=== PATIENT | female | born 1965 | race Caucasian/White ===

== ENCOUNTER 2021-11-04 06:02 | Day surgery (SDC) | payer OTHER ==
[2021-10-25 16:26] VITALS: BMI 18.6
[2021-11-04] MEDS ORDERED: ROPIVACAINE HCL/PF 100 MG/20 ML VIAL ONE (07:12)
[2021-11-04] MEDS ORDERED: MIDAZOLAM HCL 2 MG/2 ML SINGLE DOSE VIAL ONE (07:12)
[2021-11-04] MEDS ORDERED: BUPIVACAINE HCL/EPINEPHRINE/PF 30 ML VIAL IJ ONE (07:21)
[2021-11-04] MEDS ORDERED: SUCCINYLCHOLINE CHLORIDE 200 MG/10 ML SYRINGE ONE (07:28)
[2021-11-04] MEDS ORDERED: PROPOFOL 20 ML ONE ×4 (07:28)
[2021-11-04] MEDS ORDERED: ceFAZolin SODIUM 1 GM VIAL ONE (07:39)
[2021-11-04] MEDS ORDERED: DEXAMETHASONE SOD PHOSPHATE 4 MG/1 ML VIAL ONE (07:39)
[2021-11-04] MEDS ORDERED: ONDANSETRON 4 MG/2 ML VIAL ONE (07:39)
[2021-11-04] MEDS ORDERED: KETOROLAC TROMETHAMINE 30 MG/1 ML VIAL ONE (07:39)
[2021-11-04] MEDS ORDERED: ONDANSETRON 4 MG/2 ML VIAL IVPUSH PRN (09:47)
[2021-11-04] MEDS ORDERED: oxyCODONE HCL 5 MG TABLET PO PRN ×2 (09:47)
[2021-11-04] MEDS ORDERED: PROMETHAZINE HCL 25 MG/1 ML VIAL IVPUSH PRN (09:47)
[2021-11-04 12:23] VITALS: TEMP 97.8
[2021-11-04 12:26] VITALS: BP 122/65; PULSE 74
== END 2021-11-04 12:05 | disposition home or self-care (01) ==
LOC: FASU 06:02
PROVIDERS: ATTEND Orthopaedic Surgery
PROC: 0LS30ZZ Reposition Right Upper Arm Tendon, Open Approach (ICD-10-PCS; 2021-11-04)
PROC: 0LQ14ZZ Repair Right Shoulder Tendon, Percutaneous Endoscopic Approach (ICD-10-PCS; principal; 2021-11-04 07:57)
PROC: 0RNJ4ZZ Release Right Shoulder Joint, Percutaneous Endoscopic Approach (ICD-10-PCS; 2021-11-04 07:57)
PROC: 0RBJ4ZZ Excision of Right Shoulder Joint, Percutaneous Endoscopic Approach (ICD-10-PCS; 2021-11-04 07:57)
DX: M75.111 Incomplete rotator cuff tear or rupture of right shoulder, not specified as traumatic (principal); M67.813 Other specified disorders of tendon, right shoulder; S43.431A Superior glenoid labrum lesion of right shoulder, initial encounter; X58.XXXA Exposure to other specified factors, initial encounter; Y93.9 Activity, unspecified; Y92.9 Unspecified place or not applicable; M94.211 Chondromalacia, right shoulder; M65.811 Other synovitis and tenosynovitis, right shoulder; M75.01 Adhesive capsulitis of right shoulder
CPT/HCPCS: 88304-TC; 94760

== ENCOUNTER 2023-04-23 01:11 | Inpatient (IN) | payer OTHER ==
[2023-04-23] MEDS ORDERED: SODIUM CHLORIDE 0.9% 500 ML INFUS.BAG IV ONE (03:26)
[2023-04-23] MEDS ORDERED: MAG HYDROX/AL HYDROX/SIMETH 30 ML UNIT-DOSE CUP PO ONE (03:26)
[2023-04-23] MEDS ORDERED: ACETAMINOPHEN 1000 MG/100 ML BAG IVPB ONE (03:26)
[2023-04-23] MEDS ORDERED: ONDANSETRON 4 MG/2 ML VIAL IVPUSH ONE ×2 (03:26→11:52)
[2023-04-23] MEDS ORDERED: FAMOTIDINE 20 MG/50 ML IVPB 20 MG/50 ML MG IVPB ONE ×2 (03:27→04:20)
[2023-04-23] MEDS ORDERED: ACETAMINOPHEN INJECTION 100 ML IVPB ONE ×2 (04:19→21:11)
[2023-04-23 04:20] LABS: BASO % 0.3 % (0-2.0); HEMATOCRIT 39.8 % (32.4-45.2); HEMOGLOBIN 12.9 GM/dL (10.7-15.3); LYMPH % 12.2 % (8-40); MCHC 32.4 g/dl (32.0-36.0); MEAN CELL VOLUME 89.6 fl (80-96); MEAN PLT VOLUME 7.3 fl (7.5-11.1); MONO % 5.4 % (3.8-10.2); NEUT % 82.1 % (42.8-82.8); PLATELET COUNT 189 10^3/uL (134-434); RBC 4.44 M/mm3 (3.60-5.2); RDW 14.5 % (11.6-15.6)
[2023-04-23] MEDS ORDERED: ONDANSETRON 4 MG/2 ML VIAL ONE ×2 (04:20→11:47)
[2023-04-23] MEDS ORDERED: MAG HYDROX/AL HYDROX/SIMETH 30 ML UNIT-DOSE CUP ONE (04:20)
[2023-04-23 04:44] LABS: POTASSIUM 3.4 mmol/L (3.5-5.1)
[2023-04-23 04:47] LABS: BLOOD UREA NITROGEN 15.9 mg/dL (7-18)
[2023-04-23 04:51] LABS: CREATININE 0.6 mg/dL (0.55-1.3)
[2023-04-23 04:52] LABS: BILIRUBIN,TOTAL 0.6 mg/dL (0.2-1); TOT PROT 7.3 g/dl (6.4-8.2)
[2023-04-23] MEDS ORDERED: METOCLOPRAMIDE HCL INJECTION 10 MG/2 ML VIAL IVPB ONE ×2 (06:22→06:23)
[2023-04-23] MEDS ORDERED: METOCLOPRAMIDE HCL INJECTION 10 MG/2 ML VIAL ONE (06:30)
[2023-04-23] MEDS ORDERED: ASPIRIN 81 MG CHEWABLE TABLETS PO ONE (08:15)
[2023-04-23] MEDS ORDERED: ASPIRIN 81 MG CHEWABLE TABLETS ONE (09:38)
[2023-04-23] MEDS ORDERED: ATORVASTATIN CA 20 MG TABLET (FP) PO SCH (17:00)
[2023-04-23] MEDS ORDERED: PANTOPRAZOLE 40 MG TABLET PO ONE (17:21)
[2023-04-23] MEDS: DEXTROSE 5%-0.45% SALINE 1,000 ML IV SCH (17:33)
[2023-04-23] MEDS: PANTOPRAZOLE 40 MG TABLET PO SCH (17:33)
[2023-04-23] MEDS ORDERED: DIVALPROEX SODIUM 500 MG TABLET E.C. ONE (21:04)
[2023-04-23] MEDS ORDERED: GABAPENTIN 300 MG CAPSULE ONE (21:05)
[2023-04-23] MEDS: GABAPENTIN 300 MG CAPSULE PO SCH (21:07)
[2023-04-23] MEDS: ACETAMINOPHEN 1000 MG/100 ML BAG IVPB PRN (21:15)
[2023-04-23] MEDS ORDERED: DIVALPROEX SODIUM 250 MG TABLET E.C. PO SCH (22:00)
[2023-04-24] MEDS: ACETAMINOPHEN 1000 MG/100 ML BAG IVPB PRN ×2 (06:35→22:55)
[2023-04-24] MEDS ORDERED: ACETAMINOPHEN INJECTION 100 ML IVPB ONE ×2 (06:48→14:19)
[2023-04-24] MEDS ORDERED: ONDANSETRON 4 MG/2 ML VIAL ONE ×3 (08:42→18:48)
[2023-04-24 08:43] LABS: BASO % 0.4 % (0-2.0); EOS % 0.1 % (0-4.5); HEMATOCRIT 39.5 % (32.4-45.2); HEMOGLOBIN 13.4 GM/dL (10.7-15.3); LYMPH % 34.8 % (8-40); MCH 30.3 pg (25.7-33.7); MCHC 33.8 g/dl (32.0-36.0); MEAN CELL VOLUME 89.7 fl (80-96); MEAN PLT VOLUME 7.9 fl (7.5-11.1); MONO % 10.7 % (3.8-10.2); PLATELET COUNT 225 10^3/uL (134-434); RBC 4.41 M/mm3 (3.60-5.2); RDW 14.4 % (11.6-15.6); WHITE BLOOD COUNT 8.2 K/mm3 (4.0-10.0)
[2023-04-24 08:46] LABS: POTASSIUM 3.5 mmol/L (3.5-5.1)
[2023-04-24 08:47] LABS: ALBUMIN 3.8 g/dl (3.4-5.0); BLOOD UREA NITROGEN 3.2 mg/dL (7-18); CALCIUM 8.9 mg/dL (8.5-10.1)
[2023-04-24 08:50] LABS: CREATININE 0.5 mg/dL (0.55-1.3)
[2023-04-24] MEDS: ONDANSETRON 4 MG/2 ML VIAL IVPUSH PRN (08:50)
[2023-04-24 08:52] LABS: BILIRUBIN,TOTAL 0.7 mg/dL (0.2-1); TOT PROT 7.3 g/dl (6.4-8.2)
[2023-04-24 09:16] LABS: EPI CELLS 6 /uL (0-25.1); HYALINE CASTS 0 /uL (0-3.1); URINE APPEARANCE CLEAR; URINE BACTERIA 14 /uL (0-1359); URINE BILIRUBIN NEGATIVE (NEGATIVE); URINE COLOR YELLOW; URINE GLUCOSE (UA) NEGATIVE (NEGATIVE); URINE KETONE 1+ (NEGATIVE); URINE LEUK ESTERASE NEGATIVE (NEGATIVE); URINE NITRITE NEGATIVE (NEGATIVE); URINE PROTEIN TRACE (NEGATIVE); URINE RBC 56 /uL (0-23.9); URINE UROBILINOGEN 0.2 mg/dL (0.2-1.0); URINE WBC 27 /uL (0-25.8)
[2023-04-24] MEDS ORDERED: ENOXAPARIN NA (PORCINE) 40 MG/0.4 ML DISP.SYRIN SQ SCH (10:00)
[2023-04-24] MEDS: PANTOPRAZOLE 40 MG TABLET PO SCH (10:39)
[2023-04-24] MEDS: METHIMAZOLE 5 MG TABLET PO SCH (10:39)
[2023-04-24] MEDS: ASPIRIN COATED 81 MG TABLET.EC PO SCH (10:39)
[2023-04-24] MEDS: DIVALPROEX SODIUM 500 MG TABLET E.C. PO SCH ×2 (10:39→22:52)
[2023-04-24 12:55] LABS: CHLORIDE 95 mmol/L (98-107); SODIUM 129 mmol/L (136-145)
[2023-04-24 12:58] LABS: CALCIUM 9.3 mg/dL (8.5-10.1)
[2023-04-24 13:00] LABS: BLOOD UREA NITROGEN 4.2 mg/dL (7-18); CO2 24 mmol/L (21-32); GLUCOSE,RANDOM 115 mg/dL (74-106)
[2023-04-24 13:00] LABS: CHOLESTEROL 230 mg/dL (50-200)
[2023-04-24 13:01] LABS: LDL CHOLESTEROL (ONLY SJRH) 140 mg/dL (5-100)
[2023-04-24 13:02] LABS: HDL CHOLESTEROL 64 mg/dL (40-60)
[2023-04-24 13:03] LABS: CREATININE 0.4 mg/dL (0.55-1.3)
[2023-04-24 13:06] LABS: ANION GAP 10 mmol/L (4-13); POTASSIUM 2.7 mmol/L (3.5-5.1)
[2023-04-24] MEDS ORDERED: KCL 10 MEQ IVPB 10 MEQ/100 ML INFUS.BAG IVPB SCH (13:30)
[2023-04-24] MEDS ORDERED: KCL 10 MEQ IVPB 10 MEQ/100 ML INFUS.BAG IVPB ONE (13:54)
[2023-04-24] MEDS: ONDANSETRON 4 MG/2 ML VIAL IVPUSH SCH ×3 (14:17→22:48)
[2023-04-24] MEDS: KCL 10 MEQ IVPB 10 MEQ/100 ML INFUS.BAG IVPB SCH ×3 (14:18→17:01)
[2023-04-24] MEDS ORDERED: ATORVASTATIN CA 80 MG TABLET (FP) PO ONE (14:33)
[2023-04-24] MEDS ORDERED: CLOPIDOGREL BISULFATE 300 MG TABLET PO ONE (14:34)
[2023-04-24] MEDS ORDERED: METOPROLOL TARTRATE 25 MG TABLET (FP) PO ONE (14:36)
[2023-04-24] MEDS ORDERED: METOPROLOL TARTRATE 25 MG TABLET (FP) ONE (14:48)
[2023-04-24] MEDS ORDERED: ATORVASTATIN CA 80 MG TABLET (FP) ONE (14:49)
[2023-04-24] MEDS ORDERED: CLOPIDOGREL BISULFATE 300 MG TABLET ONE (14:49)
[2023-04-24 14:59] LABS: MAGNESIUM 1.7 mg/dL (1.8-2.4)
[2023-04-24] MEDS ORDERED: KCL 10 MEQ IVPB 20 MEQ/200 ML INFUS.BAG IVPB ONE (15:31)
[2023-04-24] MEDS: DEXTROSE 5%-0.45% SALINE 1,000 ML IV SCH (18:35)
[2023-04-24] MEDS ORDERED: ATORVASTATIN CA 20 MG TABLET (FP) PO SCH ×2 (22:00)
[2023-04-24] MEDS: ENOXAPARIN NA (PORCINE) 40 MG/0.4 ML DISP.SYRIN SQ SCH (22:48)
[2023-04-24] MEDS: GABAPENTIN 300 MG CAPSULE PO SCH (22:48)
[2023-04-24] MEDS: METOPROLOL TARTRATE 25 MG TABLET (FP) PO SCH (22:48)
[2023-04-24] MEDS ORDERED: MAGNESIUM SULFATE IN WATER 2 GM/50 ML IVPB IVPB ONE (22:57)
[2023-04-25] MEDS: ONDANSETRON 4 MG/2 ML VIAL IVPUSH SCH (01:50)
[2023-04-25] MEDS: DEXTROSE 5%-0.45% SALINE 1,000 ML IV SCH ×2 (06:54→16:48)
[2023-04-25 07:45] LABS: BASO % 0.3 % (0-2.0); EOS % 0.2 % (0-4.5); HEMOGLOBIN 14.2 GM/dL (10.7-15.3); MCHC 33.8 g/dl (32.0-36.0); MEAN CELL VOLUME 88.6 fl (80-96); MEAN PLT VOLUME 7.5 fl (7.5-11.1); MONO % 11.3 % (3.8-10.2); NEUT % 53.2 % (42.8-82.8); PLATELET COUNT 241 10^3/uL (134-434); RBC 4.73 M/mm3 (3.60-5.2); RDW 14.3 % (11.6-15.6); WHITE BLOOD COUNT 8.7 K/mm3 (4.0-10.0)
[2023-04-25 07:59] LABS: ALBUMIN 3.4 g/dl (3.4-5.0); BLOOD UREA NITROGEN 5.3 mg/dL (7-18); CALCIUM 9.4 mg/dL (8.5-10.1)
[2023-04-25 08:03] LABS: CREATININE 0.5 mg/dL (0.55-1.3)
[2023-04-25 08:04] LABS: BILIRUBIN,TOTAL 0.8 mg/dL (0.2-1); TOT PROT 6.7 g/dl (6.4-8.2)
[2023-04-25] MEDS: ACETAMINOPHEN 1000 MG/100 ML BAG IVPB PRN ×2 (08:50→21:35)
[2023-04-25] MEDS: ONDANSETRON 4 MG/2 ML VIAL IVPUSH PRN ×3 (08:58→21:27)
[2023-04-25] MEDS ORDERED: METOCLOPRAMIDE HCL INJECTION 10 MG/2 ML VIAL IVPB SCH (09:45)
[2023-04-25] MEDS ORDERED: POTASSIUM CHLORIDE TABS 20 MEQ TABLET.ER (FP) PO SCH (10:00)
[2023-04-25] MEDS: CLOPIDOGREL BISULFATE 75 MG TABLET (FP) PO SCH (10:05)
[2023-04-25] MEDS: ENOXAPARIN NA (PORCINE) 40 MG/0.4 ML DISP.SYRIN SQ SCH ×2 (10:05→22:31)
[2023-04-25] MEDS: METHIMAZOLE 5 MG TABLET PO SCH (10:05)
[2023-04-25] MEDS: ASPIRIN COATED 81 MG TABLET.EC PO SCH (10:05)
[2023-04-25] MEDS: PANTOPRAZOLE 40 MG TABLET PO SCH (10:05)
[2023-04-25] MEDS: METOPROLOL TARTRATE 25 MG TABLET (FP) PO SCH ×2 (10:05→22:32)
[2023-04-25] MEDS: SUCRALFATE 1 GM/10 ML UNIT DOSE CUPS PO SCH ×3 (10:31→15:02)
[2023-04-25] MEDS: DIVALPROEX SODIUM 500 MG TABLET E.C. PO SCH ×2 (11:58→22:44)
[2023-04-25] MEDS: KCL 10 MEQ IVPB 10 MEQ/100 ML INFUS.BAG IVPB SCH ×2 (17:01→18:32)
[2023-04-25] MEDS: ATORVASTATIN CA 20 MG TABLET (FP) PO SCH (22:32)
[2023-04-25] MEDS: GABAPENTIN 300 MG CAPSULE PO SCH (22:32)
[2023-04-26] MEDS: ONDANSETRON 4 MG/2 ML VIAL IVPUSH PRN ×2 (06:26→15:45)
[2023-04-26 07:09] LABS: BASO % 0.4 % (0-2.0); EOS % 0.2 % (0-4.5); HEMOGLOBIN 14.9 GM/dL (10.7-15.3); LYMPH % 54.2 % (8-40); MCH 30.1 pg (25.7-33.7); MCHC 33.9 g/dl (32.0-36.0); MEAN CELL VOLUME 88.7 fl (80-96); MEAN PLT VOLUME 7.2 fl (7.5-11.1); MONO % 10.5 % (3.8-10.2); NEUT % 34.7 % (42.8-82.8); PLATELET COUNT 270 10^3/uL (134-434); RBC 4.96 M/mm3 (3.60-5.2); RDW 14.8 % (11.6-15.6)
[2023-04-26 07:28] LABS: POTASSIUM 3.8 mmol/L (3.5-5.1)
[2023-04-26 07:37] LABS: ALBUMIN 3.6 g/dl (3.4-5.0); BLOOD UREA NITROGEN 7.5 mg/dL (7-18); CALCIUM 9.7 mg/dL (8.5-10.1); CREATININE 0.7 mg/dL (0.55-1.3)
[2023-04-26 07:38] LABS: BILIRUBIN,TOTAL 0.9 mg/dL (0.2-1); TOT PROT 7.1 g/dl (6.4-8.2)
[2023-04-26] MEDS ORDERED: PANTOPRAZOLE SODIUM 40 MG VIAL IVPUSH SCH (10:00)
[2023-04-26] MEDS: ENOXAPARIN NA (PORCINE) 40 MG/0.4 ML DISP.SYRIN SQ SCH (10:06)
[2023-04-26] MEDS: METHIMAZOLE 5 MG TABLET PO SCH (10:07)
[2023-04-26] MEDS: CLOPIDOGREL BISULFATE 75 MG TABLET (FP) PO SCH (10:07)
[2023-04-26] MEDS: DIVALPROEX SODIUM 500 MG TABLET E.C. PO SCH ×2 (10:07→22:48)
[2023-04-26] MEDS: ASPIRIN COATED 81 MG TABLET.EC PO SCH (10:07)
[2023-04-26] MEDS: METOPROLOL TARTRATE 25 MG TABLET (FP) PO SCH ×2 (10:07→22:16)
[2023-04-26] MEDS: DEXTROSE 5%-0.45% SALINE 1,000 ML IV SCH (10:51)
[2023-04-26] MEDS: ACETAMINOPHEN 1000 MG/100 ML BAG IVPB PRN ×2 (10:52→22:49)
[2023-04-26 18:30] VITALS: RESP 18
[2023-04-26 21:53] VITALS: BMI 15.9
[2023-04-26] MEDS: ATORVASTATIN CA 20 MG TABLET (FP) PO SCH (22:16)
[2023-04-26] MEDS: GABAPENTIN 300 MG CAPSULE PO SCH (22:16)
[2023-04-27 00:29] VITALS: BP 110/60; PULSE 74; TEMP 98.1
== END 2023-04-26 23:50 | disposition short-term general hospital (02) | DRG 280 ==
LOC: JER 01:11 → JERBED 09:38 → OBSVTOIN 14:46 → J4W 04-24 20:38
PROVIDERS: ADMIT Internal Medicine; ATTEND Internal Medicine
DX: I21.4 Non-ST elevation (NSTEMI) myocardial infarction (principal); E43 Unspecified severe protein-calorie malnutrition; Z68.1 Body mass index [BMI] 19.9 or less, adult; M79.7 Fibromyalgia; E05.90 Thyrotoxicosis, unspecified without thyrotoxic crisis or storm; K21.9 Gastro-esophageal reflux disease without esophagitis; R79.89 Other specified abnormal findings of blood chemistry; I10 Essential (primary) hypertension; E78.5 Hyperlipidemia, unspecified; I45.10 Unspecified right bundle-branch block; R10.9 Unspecified abdominal pain
CPT/HCPCS: 0241U-QW; 36415; 71046-TC-FY; 74177-TC; 76830-TC; 80048; 80053; 80061; 81003; 83036; 83690; 83735; 83880; 84100; 84443; 84484; 85025; 87086; 93005; 93010; 93306-TC; 99285-25; G0378; Q9967

== ENCOUNTER 2023-10-05 14:14 | Inpatient (IN) | payer OTHER ==
[2023-10-05 15:20] LABS: BASO % 0.4 % (0-2.0); EOS % 0.4 % (0-4.5); HEMATOCRIT 40.2 % (32.4-45.2); HEMOGLOBIN 13.6 GM/dL (10.7-15.3); LYMPH % 27.4 % (8-40); MCH 29.7 pg (25.7-33.7); MCHC 33.7 g/dl (32.0-36.0); MEAN CELL VOLUME 88.2 fl (80-96); MEAN PLT VOLUME 7.2 fl (7.5-11.1); MONO % 10.1 % (3.8-10.2); NEUT % 61.7 % (42.8-82.8); PLATELET COUNT 209 10^3/uL (134-434); RBC 4.56 M/mm3 (3.60-5.2); RDW 13.8 % (11.6-15.6); WHITE BLOOD COUNT 7.9 K/mm3 (4.0-10.0)
[2023-10-05 15:28] LABS: INR 1.11 (0.83-1.09); PROTHROMBIN TIME (PATIENT) 12.7 SEC (9.7-13.0)
[2023-10-05 15:31] LABS: ACTIVATED PTT 32.8 SECONDS (25.2-36.5)
[2023-10-05 15:39] LABS: POTASSIUM 4.5 mmol/L (3.5-5.1)
[2023-10-05 15:41] LABS: CALCIUM 9.9 mg/dL (8.5-10.1)
[2023-10-05 15:43] LABS: ALBUMIN 3.6 g/dl (3.4-5.0); BLOOD UREA NITROGEN 10.1 mg/dL (7-18)
[2023-10-05 15:45] LABS: CREATININE 0.6 mg/dL (0.55-1.3)
[2023-10-05 15:46] LABS: BILIRUBIN,TOTAL 0.7 mg/dL (0.2-1); TOT PROT 7.4 g/dl (6.4-8.2)
[2023-10-05] MEDS ORDERED: CEFTRIAXONE 2 GM/100 ML BAG IVPB ONE (16:56)
[2023-10-05] MEDS: CEFTRIAXONE 2,000 MG in DEXTROSE 5%-WATER - 50 ML IVPB ONE (17:01)
[2023-10-05 17:10] LABS: PH,URINE 5.5 (5.0-8.0); URINE APPEARANCE CLEAR; URINE BILIRUBIN NEGATIVE (NEGATIVE); URINE COLOR YELLOW; URINE GLUCOSE (UA) NEGATIVE (NEGATIVE); URINE KETONE NEGATIVE (NEGATIVE); URINE LEUK ESTERASE NEGATIVE (NEGATIVE); URINE NITRITE NEGATIVE (NEGATIVE); URINE PROTEIN NEGATIVE (NEGATIVE); URINE UROBILINOGEN 0.2 mg/dL (0.2-1.0)
[2023-10-05 19:01] LABS: EPI CELLS 2.4 /uL (0-25.1); HYALINE CASTS 0.14 /uL (0-3.1); URINE BACTERIA 4.7 /uL (0-1359); URINE RBC 15.4 /uL (0-23.9); URINE WBC 1.7 /uL (0-25.8)
[2023-10-05] MEDS ORDERED: PROPOFOL 40 ML ONE (19:47)
[2023-10-05] MEDS ORDERED: FENTANYL CITRATE/PF 50 MCG/ML VIAL ONE (19:47)
[2023-10-05] MEDS ORDERED: SUGAMMADEX SODIUM 200 MG/2 ML VIAL ONE (19:47)
[2023-10-05] MEDS ORDERED: MIDAZOLAM HCL 2 MG/2 ML SINGLE DOSE VIAL ONE (19:48)
[2023-10-05] MEDS ORDERED: SUCCINYLCHOLINE CHLORIDE 200 MG/10 ML SYRINGE ONE (19:48)
[2023-10-05] MEDS ORDERED: BUPIVACAINE HCL/PF 0.5% (5MG/ML) 10 ML VIAL ONE (19:59)
[2023-10-05] MEDS ORDERED: ONDANSETRON 4 MG/2 ML VIAL ONE (20:20)
[2023-10-05] MEDS ORDERED: DEXAMETHASONE SOD PHOSPHATE 4 MG/1 ML VIAL ONE (20:20)
[2023-10-05] MEDS: BUPIVACAINE HCL/PF 0.5% (5 MG/ML) 30 ML VIAL IJ ONE ×2 (20:45)
[2023-10-05] MEDS ORDERED: ONDANSETRON 4 MG/2 ML VIAL IVPUSH PRN ×2 (21:19→21:39)
[2023-10-05] MEDS ORDERED: ACETAMINOPHEN INJECTION 100 ML IVPB ONE (21:34)
[2023-10-05] MEDS: LACTATED RINGERS SOLUTION 1,000 ML IV SCH ×2 (22:35→23:32)
[2023-10-05] MEDS: ACETAMINOPHEN 1000 MG/100 ML BAG IVPB ONE ×2 (22:40→23:36)
[2023-10-05] MEDS: LACTATED RINGERS SOLUTION 1000 ML INFUS.BAG IV ONE (23:36)
[2023-10-06] MEDS: DIVALPROEX NA *ER* EXTEND REL 500 MG TABLET.SA (FP) PO ONE (01:35)
[2023-10-06 03:04] VITALS: RESP 18
[2023-10-06] MEDS ORDERED: ACETAMINOPHEN 1000 MG/100 ML BAG IVPB PRN (04:00)
[2023-10-06 06:09] VITALS: BMI 18.9
[2023-10-06 09:01] LABS: BASO % 0.1 % (0-2.0); HEMATOCRIT 35.4 % (32.4-45.2); HEMOGLOBIN 11.9 GM/dL (10.7-15.3); LYMPH % 13.7 % (8-40); MCH 29.9 pg (25.7-33.7); MCHC 33.5 g/dl (32.0-36.0); MEAN CELL VOLUME 89.2 fl (80-96); MEAN PLT VOLUME 7.8 fl (7.5-11.1); MONO % 5.1 % (3.8-10.2); NEUT % 81.1 % (42.8-82.8); PLATELET COUNT 176 10^3/uL (134-434); RBC 3.97 M/mm3 (3.60-5.2); RDW 13.5 % (11.6-15.6); WHITE BLOOD COUNT 7.5 K/mm3 (4.0-10.0)
[2023-10-06 09:20] LABS: CALCIUM 8.8 mg/dL (8.5-10.1)
[2023-10-06 09:21] LABS: BLOOD UREA NITROGEN 11.7 mg/dL (7-18)
[2023-10-06 09:24] LABS: CREATININE 0.5 mg/dL (0.55-1.3)
[2023-10-06] MEDS: METHIMAZOLE 5 MG TABLET PO SCH (10:05)
[2023-10-06] MEDS: HEPARIN NA (PORCINE) 5,000 UNITS/ML 1ML VIAL SQ SCH (10:06)
[2023-10-06] MEDS: metoPROLOL SUCCINATE 25 MG TAB.SR.24H (FP) PO SCH (10:08)
[2023-10-06 15:23] VITALS: BP 85/51; PULSE 77; TEMP 98.7
[2023-10-06] MEDS ORDERED: DIVALPROEX NA *ER* EXTEND REL 500 MG TABLET.SA (FP) PO SCH (22:00)
[2023-10-06] MEDS ORDERED: GABAPENTIN 100 MG CAPSULE PO SCH (22:00)
[2023-10-06] MEDS ORDERED: ATORVASTATIN CA 40 MG TABLET (FP) PO SCH (22:00)
== END 2023-10-06 15:40 | disposition home or self-care (01) | DRG 399 ==
LOC: JER 14:14 → JERBED 17:04 → J6S 22:53
PROVIDERS: ATTEND Internal Medicine
PROC: 0DTJ4ZZ Resection of Appendix, Percutaneous Endoscopic Approach (ICD-10-PCS; principal; 2023-10-05 19:00)
DX: K35.80 Unspecified acute appendicitis (principal); M79.7 Fibromyalgia; G40.909 Epilepsy, unspecified, not intractable, without status epilepticus; I10 Essential (primary) hypertension; E78.5 Hyperlipidemia, unspecified
CPT/HCPCS: 36415; 71046-TC-FY; 74177-TC; 80048; 80053; 81003; 85025; 85610; 85730; 86850; 86900; 86901; 88304-TC; 93005; 93010; 94760; 99285-25; J0131; J1644; Q9967

== ENCOUNTER 2023-10-17 16:32 | Inpatient (IN) | payer OTHER ==
[2023-10-17 18:44] LABS: BASO % 0.2 % (0-2.0); EOS % 0.1 % (0-4.5); HEMOGLOBIN 12.4 GM/dL (10.7-15.3); LYMPH % 19.6 % (8-40); MCHC 33.4 g/dl (32.0-36.0); MEAN CELL VOLUME 86.7 fl (80-96); MEAN PLT VOLUME 7.2 fl (7.5-11.1); MONO % 9.9 % (3.8-10.2); NEUT % 70.2 % (42.8-82.8); PLATELET COUNT 294 10^3/uL (134-434); RBC 4.27 M/mm3 (3.60-5.2); RDW 13.8 % (11.6-15.6)
[2023-10-17 18:56] LABS: INR 1.21 (0.83-1.09); PROTHROMBIN TIME (PATIENT) 13.8 SEC (9.7-13.0)
[2023-10-17 18:59] LABS: ACTIVATED PTT 28.1 SECONDS (25.2-36.5)
[2023-10-17] MEDS ORDERED: ONDANSETRON 4 MG/2 ML VIAL ONE (19:06)
[2023-10-17 19:15] LABS: POTASSIUM 3.4 mmol/L (3.5-5.1)
[2023-10-17] MEDS: SODIUM CHLORIDE 0.9% 500 ML INFUS.BAG IV ONE (19:16)
[2023-10-17] MEDS: ONDANSETRON 4 MG/2 ML VIAL IVPUSH ONE (19:16)
[2023-10-17 19:20] LABS: ALBUMIN 3.2 g/dl (3.4-5.0); BLOOD UREA NITROGEN 6.3 mg/dL (7-18); CALCIUM 9.2 mg/dL (8.5-10.1)
[2023-10-17 19:22] LABS: CREATININE 0.4 mg/dL (0.55-1.3)
[2023-10-17 19:24] LABS: BILIRUBIN,TOTAL 0.5 mg/dL (0.2-1); TOT PROT 6.7 g/dl (6.4-8.2)
[2023-10-17 19:28] LABS: N-TERMINAL BNP 844.8 pg/ml (5-125)
[2023-10-17] MEDS: DEXTROSE 5%-0.45% SALINE 1,000 ML IV SCH (20:57)
[2023-10-17 20:58] LABS: EPI CELLS 7 /uL (0-25.1); HYALINE CASTS 0 /uL (0-3.1); URINE APPEARANCE CLEAR; URINE BACTERIA 2 /uL (0-1359); URINE BILIRUBIN NEGATIVE (NEGATIVE); URINE COLOR YELLOW; URINE GLUCOSE (UA) NEGATIVE (NEGATIVE); URINE KETONE 4+ (NEGATIVE); URINE LEUK ESTERASE NEGATIVE (NEGATIVE); URINE NITRITE NEGATIVE (NEGATIVE); URINE PROTEIN TRACE (NEGATIVE); URINE RBC 33 /uL (0-23.9); URINE UROBILINOGEN 0.2 mg/dL (0.2-1.0); URINE WBC 4 /uL (0-25.8)
[2023-10-18] MEDS ORDERED: GABAPENTIN 300 MG CAPSULE ONE ×2 (00:06→22:04)
[2023-10-18] MEDS ORDERED: ATORVASTATIN CA 40 MG TABLET (FP) ONE ×2 (00:06→22:04)
[2023-10-18] MEDS ORDERED: DIVALPROEX NA *ER* EXTEND REL 250 MG TABLET.SA ONE (00:06)
[2023-10-18] MEDS: GABAPENTIN 300 MG CAPSULE PO ONE (00:10)
[2023-10-18] MEDS: ATORVASTATIN CA 40 MG TABLET (FP) PO ONE (00:10)
[2023-10-18] MEDS: DIVALPROEX NA *ER* EXTEND REL 250 MG TABLET.SA PO ONE (00:10)
[2023-10-18] MEDS ORDERED: ONDANSETRON 4 MG/2 ML VIAL ONE ×5 (00:34→17:51)
[2023-10-18] MEDS: ONDANSETRON 4 MG/2 ML VIAL IM PRN (00:37)
[2023-10-18] MEDS ORDERED: ACETAMINOPHEN 325 MG TABLET (FP) ONE ×2 (01:52→11:33)
[2023-10-18] MEDS: ACETAMINOPHEN 325 MG TABLET (FP) PO PRN (01:55)
[2023-10-18 07:25] LABS: BASO % 0.4 % (0-2.0); EOS % 0.3 % (0-4.5); HEMATOCRIT 34.8 % (32.4-45.2); HEMOGLOBIN 11.8 GM/dL (10.7-15.3); LYMPH % 31.9 % (8-40); MCH 29.3 pg (25.7-33.7); MCHC 33.9 g/dl (32.0-36.0); MEAN CELL VOLUME 86.5 fl (80-96); MEAN PLT VOLUME 7.2 fl (7.5-11.1); MONO % 12.4 % (3.8-10.2); PLATELET COUNT 278 10^3/uL (134-434); RBC 4.03 M/mm3 (3.60-5.2); RDW 13.5 % (11.6-15.6); WHITE BLOOD COUNT 7.6 K/mm3 (4.0-10.0)
[2023-10-18 07:28] LABS: CHLORIDE 102 mmol/L (98-107); SODIUM 136 mmol/L (136-145)
[2023-10-18 07:29] LABS: CALCIUM 8.6 mg/dL (8.5-10.1)
[2023-10-18 07:30] LABS: BLOOD UREA NITROGEN 4.1 mg/dL (7-18); CO2 23 mmol/L (21-32); GLUCOSE,RANDOM 87 mg/dL (74-106); MAGNESIUM 1.6 mg/dL (1.8-2.4)
[2023-10-18 07:33] LABS: CREATININE 0.4 mg/dL (0.55-1.3); PHOSPHOROUS 2.8 mg/dL (2.5-4.9)
[2023-10-18 07:34] LABS: ANION GAP 11 mmol/L (4-13); POTASSIUM 2.9 mmol/L (3.5-5.1)
[2023-10-18] MEDS ORDERED: KCL 10 MEQ IVPB 10 MEQ/100 ML INFUS.BAG IVPB ONE ×3 (08:02→13:16)
[2023-10-18] MEDS: KCL 10 MEQ IVPB 10 MEQ/100 ML INFUS.BAG IVPB SCH (08:13)
[2023-10-18] MEDS: MAGNESIUM SULFATE IN WATER 2 GM/50 ML IVPB IVPB ONE (08:15)
[2023-10-18] MEDS: CEFTRIAXONE 1 GM in DEXTROSE 5%-WATER - 50 ML IVPB SCH (09:40)
[2023-10-18] MEDS: metoPROLOL SUCCINATE 25 MG TAB.SR.24H (FP) PO SCH (10:15)
[2023-10-18] MEDS ORDERED: metoPROLOL SUCCINATE 25 MG TAB.SR.24H (FP) PO ONE (10:31)
[2023-10-18] MEDS ORDERED: MAGNESIUM SULFATE IN WATER 2 GM/50 ML IVPB IVPB ONE (10:32)
[2023-10-18] MEDS: METHIMAZOLE 5 MG TABLET PO SCH (11:00)
[2023-10-18] MEDS ORDERED: CEFTRIAXONE 1 GM/50 ML BAG ONE (11:07)
[2023-10-18] MEDS: D5-1/2NS+20 MEQ KCL - 20 MEQ/1,000 ML INFUS.BAG IV SCH (16:39)
[2023-10-18 16:56] LABS: POTASSIUM 2.9 mmol/L (3.5-5.1)
[2023-10-18] MEDS ORDERED: POTASSIUM CHLORIDE ORAL LIQUID 20 MEQ/15 ML ONE (17:50)
[2023-10-18] MEDS ORDERED: POTASSIUM CHLORIDE TABS 20 MEQ TABLET.ER (FP) PO ONE (17:59)
[2023-10-18] MEDS: POTASSIUM CHLORIDE ORAL LIQUID 20 MEQ/15 ML PO ONE (18:06)
[2023-10-18] MEDS: ONDANSETRON 4 MG/2 ML VIAL IVPUSH PRN (18:07)
[2023-10-18] MEDS ORDERED: ACETAMINOPHEN INJECTION 100 ML IVPB ONE (20:23)
[2023-10-18] MEDS: ACETAMINOPHEN 1000 MG/100 ML BAG IVPB PRN (20:43)
[2023-10-18] MEDS ORDERED: DIVALPROEX SODIUM 500 MG TABLET E.C. ONE (22:05)
[2023-10-18] MEDS: GABAPENTIN 300 MG CAPSULE PO SCH (22:10)
[2023-10-18] MEDS: ATORVASTATIN CA 40 MG TABLET (FP) PO SCH (22:10)
[2023-10-18] MEDS ORDERED: ACETAMINOPHEN 1000 MG/100 ML BAG IVPB PRN ×2 (23:59)
[2023-10-19] MEDS ORDERED: ACETAMINOPHEN INJECTION 100 ML IVPB ONE (04:11)
[2023-10-19] MEDS ORDERED: DIVALPROEX NA *ER* EXTEND REL 500 MG TABLET.SA (FP) PO SCH (04:51)
[2023-10-19] MEDS: DIVALPROEX NA *ER* EXTEND REL 500 MG TABLET.SA (FP) PO SCH (04:53)
[2023-10-19] MEDS: DIVALPROEX NA *ER* EXTEND REL 250 MG TABLET.SA PO SCH (05:40)
[2023-10-19 07:10] LABS: BASO % 0.5 % (0-2.0); EOS % 0.6 % (0-4.5); HEMATOCRIT 41.9 % (32.4-45.2); HEMOGLOBIN 14.1 GM/dL (10.7-15.3); LYMPH % 35.4 % (8-40); MCH 28.9 pg (25.7-33.7); MCHC 33.6 g/dl (32.0-36.0); MEAN CELL VOLUME 86.1 fl (80-96); MEAN PLT VOLUME 7.1 fl (7.5-11.1); MONO % 15.5 % (3.8-10.2); PLATELET COUNT 353 10^3/uL (134-434); RBC 4.87 M/mm3 (3.60-5.2); RDW 13.4 % (11.6-15.6); WHITE BLOOD COUNT 7.5 K/mm3 (4.0-10.0)
[2023-10-19 07:36] LABS: CHLORIDE 100 mmol/L (98-107); POTASSIUM 3.6 mmol/L (3.5-5.1); SODIUM 132 mmol/L (136-145)
[2023-10-19 07:43] LABS: ANION GAP 9 mmol/L (4-13); CO2 24 mmol/L (21-32); GLUCOSE,RANDOM 128 mg/dL (74-106); MAGNESIUM 1.7 mg/dL (1.8-2.4)
[2023-10-19 07:44] LABS: ALBUMIN 3.4 g/dl (3.4-5.0)
[2023-10-19 07:46] LABS: SGOT/AST 19 U/L (15-37); SGPT/ALT 17 U/L (13-61)
[2023-10-19 07:47] LABS: BILIRUBIN,TOTAL 0.5 mg/dL (0.2-1); CREATININE 0.5 mg/dL (0.55-1.3)
[2023-10-19 07:48] LABS: TOT PROT 7.2 g/dl (6.4-8.2)
[2023-10-19 07:49] LABS: ALK PHOS 67 U/L (45-117)
[2023-10-19 07:50] LABS: BLOOD UREA NITROGEN 1.9 mg/dL (7-18)
[2023-10-19] MEDS: PROMETHAZINE HCL 25 MG/1 ML VIAL IM ONE (12:34)
[2023-10-19] MEDS: ONDANSETRON 4 MG/2 ML VIAL IVPB SCH (14:19)
[2023-10-19] MEDS: FAMOTIDINE 20 MG/50 ML IVPB 20 MG/50 ML MG IVPB SCH (14:19)
[2023-10-19 15:59] VITALS: BMI 17.5
[2023-10-19] MEDS: HEPARIN NA (PORCINE) 5,000 UNITS/ML 1ML VIAL SQ SCH (21:44)
[2023-10-20] MEDS ORDERED: ONDANSETRON 4 MG/2 ML VIAL IVPB PRN (06:00)
[2023-10-20 09:21] LABS: BASO % 0.6 % (0-2.0); EOS % 1.2 % (0-4.5); HEMATOCRIT 39.9 % (32.4-45.2); HEMOGLOBIN 13.2 GM/dL (10.7-15.3); LYMPH % 51.8 % (8-40); MCH 28.8 pg (25.7-33.7); MCHC 33.2 g/dl (32.0-36.0); MEAN CELL VOLUME 86.9 fl (80-96); MEAN PLT VOLUME 7.1 fl (7.5-11.1); NEUT % 33.4 % (42.8-82.8); PLATELET COUNT 315 10^3/uL (134-434); RDW 13.7 % (11.6-15.6)
[2023-10-20 09:25] LABS: CHLORIDE 105 mmol/L (98-107); POTASSIUM 4.1 mmol/L (3.5-5.1); SODIUM 139 mmol/L (136-145)
[2023-10-20 09:27] LABS: CALCIUM 9.4 mg/dL (8.5-10.1)
[2023-10-20 09:28] LABS: ALBUMIN 3.1 g/dl (3.4-5.0); ANION GAP 5 mmol/L (4-13); CO2 29 mmol/L (21-32); GLUCOSE,RANDOM 117 mg/dL (74-106)
[2023-10-20 09:31] LABS: CREATININE 0.7 mg/dL (0.55-1.3); SGOT/AST 19 U/L (15-37); SGPT/ALT 18 U/L (13-61)
[2023-10-20 09:32] LABS: BILIRUBIN,TOTAL 0.4 mg/dL (0.2-1); TOT PROT 6.1 g/dl (6.4-8.2)
[2023-10-20 09:34] LABS: ALK PHOS 57 U/L (45-117)
[2023-10-20 09:42] LABS: BLOOD UREA NITROGEN 2.6 mg/dL (7-18)
[2023-10-20] MEDS ORDERED: diazePAM 5 MG TABLET PO ONE (13:31)
[2023-10-20] MEDS: VANCOMYCIN 250 MG/5 ML ORAL SOLUTION (RESTRICTED TO ID ONLY) PO SCH (18:18)
[2023-10-21 08:54] LABS: BASO % 0.6 % (0-2.0); HEMATOCRIT 34.9 % (32.4-45.2); HEMOGLOBIN 11.7 GM/dL (10.7-15.3); MCH 28.9 pg (25.7-33.7); MCHC 33.4 g/dl (32.0-36.0); MEAN CELL VOLUME 86.5 fl (80-96); MONO % 11.8 % (3.8-10.2); NEUT % 26.6 % (42.8-82.8); PLATELET COUNT 271 10^3/uL (134-434); RBC 4.04 M/mm3 (3.60-5.2); RDW 13.6 % (11.6-15.6); WHITE BLOOD COUNT 5.2 K/mm3 (4.0-10.0)
[2023-10-21 09:15] LABS: ALBUMIN 2.6 g/dl (3.4-5.0); BLOOD UREA NITROGEN 4.2 mg/dL (7-18); CALCIUM 8.7 mg/dL (8.5-10.1); MAGNESIUM 1.8 mg/dL (1.8-2.4)
[2023-10-21 09:18] LABS: CREATININE 0.5 mg/dL (0.55-1.3)
[2023-10-21 09:20] LABS: BILIRUBIN,TOTAL 0.5 mg/dL (0.2-1); TOT PROT 5.2 g/dl (6.4-8.2)
[2023-10-21] MEDS: SODIUM CHLORIDE 500 ML IV STA (15:54)
[2023-10-21] MEDS ORDERED: diazePAM 5 MG TABLET PO SCH (16:00)
[2023-10-22 11:36] VITALS: BP 114/70; PULSE 88; RESP 17; TEMP 97.9
== END 2023-10-22 12:57 | disposition home or self-care (01) | DRG 371 ==
LOC: JER 16:32 → JERBED 23:55 → J7W 10-19 05:16 → OBSVTOIN 10-19 11:27
PROVIDERS: ADMIT Internal Medicine; ATTEND Internal Medicine
DX: A04.72 Enterocolitis due to Clostridium difficile, not specified as recurrent (principal); E43 Unspecified severe protein-calorie malnutrition; R64 Cachexia; Z68.1 Body mass index [BMI] 19.9 or less, adult; I25.10 Atherosclerotic heart disease of native coronary artery without angina pectoris; I10 Essential (primary) hypertension; E78.5 Hyperlipidemia, unspecified; M79.7 Fibromyalgia; E86.0 Dehydration
CPT/HCPCS: 0241U-QW; 36415; 71045-TC-FY; 74177-TC; 80048; 80053; 81003; 82272; 83605; 83690; 83735; 83880; 83993; 84100; 84132; 84484; 85025; 85610; 85730; 86140; 86850; 86900; 86901; 87045; 87046; 87086; 87209; 87324; 87449; 87493; 93005; 93010; 99285-25; G0378; J0131; J1644; Q9967

== ENCOUNTER 2024-05-03 16:12 | Observation (INO) | payer OTHER ==
[2024-05-03] MEDS ORDERED: ACETAMINOPHEN INJECTION 100 ML ONE (18:36)
[2024-05-03] MEDS ORDERED: ONDANSETRON 4 MG/2 ML VIAL ONE (18:36)
[2024-05-03 18:42] LABS: BASO % 0.2 % (0-2.0); EOS % 0.1 % (0-4.5); HEMATOCRIT 41.2 % (32.4-45.2); HEMOGLOBIN 13.3 GM/dL (10.7-15.3); LYMPH % 3.9 % (8-40); MCH 28.7 pg (25.7-33.7); MCHC 32.3 g/dl (32.0-36.0); MEAN CELL VOLUME 88.8 fl (80-96); MEAN PLT VOLUME 7.4 fl (7.5-11.1); MONO % 9.7 % (3.8-10.2); NEUT % 86.1 % (42.8-82.8); PLATELET COUNT 173 10^3/uL (134-434); RBC 4.64 M/mm3 (3.60-5.2); RDW 14.5 % (11.6-15.6)
[2024-05-03] MEDS: SODIUM CHLORIDE 0.9% 500 ML INFUS.BAG IV ONE (18:55)
[2024-05-03] MEDS: ACETAMINOPHEN 1000 MG/100 ML BAG IVPB ONE (18:55)
[2024-05-03] MEDS: ONDANSETRON 4 MG/2 ML VIAL IVPUSH ONE (18:56)
[2024-05-03 18:58] LABS: INR 1.14 (0.83-1.09); PROTHROMBIN TIME (PATIENT) 13.1 SEC (9.7-13.0)
[2024-05-03 19:00] LABS: ACTIVATED PTT 26.7 SECONDS (25.2-36.5); POTASSIUM 3.5 mmol/L (3.5-5.1)
[2024-05-03 19:02] LABS: ALBUMIN 3.8 g/dl (3.4-5.0); BLOOD UREA NITROGEN 19.7 mg/dL (7-18); CALCIUM 9.8 mg/dL (8.5-10.1)
[2024-05-03 19:05] LABS: CREATININE 0.9 mg/dL (0.55-1.3)
[2024-05-03 19:07] LABS: BILIRUBIN,TOTAL 0.7 mg/dL (0.2-1); TOT PROT 7.3 g/dl (6.4-8.2)
[2024-05-03 19:10] LABS: LACTIC ACID 2.9 mmol/L (0.4-2.0)
[2024-05-03 19:30] LABS: ERYTHROCYTE SEDIMENTATION RATE 6 mm/hr (0-30)
[2024-05-03] MEDS: LACTATED RINGERS SOLUTION 1000 ML INFUS.BAG IV ONE (20:17)
[2024-05-03] MEDS ORDERED: METOCLOPRAMIDE HCL INJECTION 10 MG/2 ML VIAL ONE (20:37)
[2024-05-03] MEDS: METOCLOPRAMIDE HCL INJECTION 10 MG/2 ML VIAL IVPB ONE (20:41)
[2024-05-03 20:49] LABS: EPI CELLS >36 /uL (0-25.1); HYALINE CASTS 30 /uL (0-3.1); PH,URINE 5.5 (5.0-8.0); URINE APPEARANCE CLOUDY; URINE BACTERIA 67 /uL (0-1359); URINE BILIRUBIN NEGATIVE (NEGATIVE); URINE COLOR YELLOW; URINE GLUCOSE (UA) NEGATIVE (NEGATIVE); URINE KETONE 1+ (NEGATIVE); URINE LEUK ESTERASE NEGATIVE (NEGATIVE); URINE NITRITE NEGATIVE (NEGATIVE); URINE PROTEIN 1+ (NEGATIVE); URINE RBC 57 /uL (0-23.9); URINE UROBILINOGEN 0.2 mg/dL (0.2-1.0); URINE WBC 43 /uL (0-25.8)
[2024-05-04] MEDS: DIVALPROEX NA *ER* EXTEND REL 250 MG TABLET.SA PO ONE (02:26)
[2024-05-04] MEDS: ATORVASTATIN CA 40 MG TABLET (FP) PO ONE (02:26)
[2024-05-04] MEDS: ONDANSETRON 4 MG/2 ML VIAL IVPB ONE (02:26)
[2024-05-04] MEDS: GABAPENTIN 300 MG CAPSULE PO ONE (02:26)
[2024-05-04] MEDS: KETOROLAC TROMETHAMINE 15 MG/ML VIAL IVPUSH ONE (02:26)
[2024-05-04] MEDS ORDERED: GABAPENTIN 300 MG CAPSULE ONE ×2 (02:27→22:18)
[2024-05-04] MEDS ORDERED: KETOROLAC TROMETHAMINE 15 MG/ML VIAL ONE (02:28)
[2024-05-04] MEDS ORDERED: ATORVASTATIN CA 40 MG TABLET (FP) ONE ×2 (02:28→22:18)
[2024-05-04] MEDS ORDERED: ONDANSETRON 4 MG/2 ML VIAL ONE (02:28)
[2024-05-04] MEDS ORDERED: DIVALPROEX SODIUM 250 MG TABLET E.C. ONE ×3 (02:28→22:19)
[2024-05-04] MEDS: CIPROFLOXACIN 400 MG/D5W 400 MG/200 ML IVPB IVPB ONE (04:51)
[2024-05-04] MEDS ORDERED: ACETAMINOPHEN 1000 MG/100 ML BAG IVPB PRN (05:56)
[2024-05-04] MEDS: SODIUM CHLORIDE 1,000 ML IV SCH (06:07)
[2024-05-04] MEDS ORDERED: PANTOPRAZOLE 20 MG TABLET PO ONE (07:35)
[2024-05-04] MEDS: PANTOPRAZOLE 20 MG TABLET PO SCH (07:44)
[2024-05-04 08:39] LABS: BASO % 0.2 % (0-2.0); HEMATOCRIT 35.8 % (32.4-45.2); LYMPH % 16.1 % (8-40); MCH 29.5 pg (25.7-33.7); MCHC 33.5 g/dl (32.0-36.0); MEAN CELL VOLUME 88.2 fl (80-96); MEAN PLT VOLUME 7.6 fl (7.5-11.1); NEUT % 69.7 % (42.8-82.8); PLATELET COUNT 141 10^3/uL (134-434); RBC 4.07 M/mm3 (3.60-5.2); RDW 14.5 % (11.6-15.6); WHITE BLOOD COUNT 5.4 K/mm3 (4.0-10.0)
[2024-05-04] MEDS ORDERED: CEFTRIAXONE 1 G/50 ML PREMIX 50 ML IVPB ONE (08:44)
[2024-05-04 08:51] LABS: POTASSIUM 3.6 mmol/L (3.5-5.1)
[2024-05-04 09:00] LABS: BLOOD UREA NITROGEN 11.6 mg/dL (7-18); CALCIUM 9.1 mg/dL (8.5-10.1)
[2024-05-04] MEDS: CEFTRIAXONE 1 G/50 ML PREMIX 50 ML IVPB SCH (09:02)
[2024-05-04 09:03] LABS: CREATININE 0.6 mg/dL (0.55-1.3)
[2024-05-04] MEDS ORDERED: metoPROLOL SUCCINATE 25 MG TAB.SR.24H (FP) PO ONE (09:19)
[2024-05-04] MEDS: DIVALPROEX SODIUM 500 MG TABLET E.C. PO SCH (09:44)
[2024-05-04] MEDS: METHIMAZOLE 5 MG TABLET PO SCH (09:44)
[2024-05-04] MEDS: metoPROLOL SUCCINATE 25 MG TAB.SR.24H (FP) PO SCH (09:44)
[2024-05-04] MEDS ORDERED: ACETAMINOPHEN INJECTION 100 ML ONE ×2 (12:34→17:26)
[2024-05-04] MEDS: ACETAMINOPHEN 1000 MG/100 ML BAG IVPB PRN (12:55)
[2024-05-04] MEDS ORDERED: MAGNESIUM SULFATE IN WATER 2 GM/50 ML IVPB IVPB ONE (18:47)
[2024-05-04] MEDS: MAGNESIUM SULFATE IN WATER 2 GM/50 ML IVPB IVPB ONE (18:54)
[2024-05-04] MEDS ORDERED: ACETAMINOPHEN/CAFFEINE/BUTALBITAL 1 TAB ONE (22:19)
[2024-05-04] MEDS: ATORVASTATIN CA 40 MG TABLET (FP) PO SCH (22:23)
[2024-05-04] MEDS: ACETAMINOPHEN/CAFFEINE/BUTALBITAL 1 TAB PO ONE (22:23)
[2024-05-04] MEDS: GABAPENTIN 300 MG CAPSULE PO SCH (22:24)
[2024-05-05] MEDS ORDERED: CEFTRIAXONE 1 G/50 ML PREMIX 50 ML IVPB ONE (08:28)
[2024-05-05 08:50] LABS: BASO % 0.3 % (0-2.0); EOS % 0.1 % (0-4.5); HEMATOCRIT 36.9 % (32.4-45.2); HEMOGLOBIN 12.3 GM/dL (10.7-15.3); MCH 29.3 pg (25.7-33.7); MCHC 33.2 g/dl (32.0-36.0); MEAN CELL VOLUME 88.1 fl (80-96); MEAN PLT VOLUME 7.7 fl (7.5-11.1); MONO % 10.9 % (3.8-10.2); NEUT % 41.7 % (42.8-82.8); PLATELET COUNT 143 10^3/uL (134-434); RBC 4.19 M/mm3 (3.60-5.2); RDW 14.6 % (11.6-15.6); WHITE BLOOD COUNT 4.4 K/mm3 (4.0-10.0)
[2024-05-05 09:20] LABS: POTASSIUM 3.6 mmol/L (3.5-5.1)
[2024-05-05 09:40] LABS: ALBUMIN 3.1 g/dl (3.4-5.0); BLOOD UREA NITROGEN 5.9 mg/dL (7-18); CALCIUM 8.7 mg/dL (8.5-10.1)
[2024-05-05 09:44] LABS: CREATININE 0.5 mg/dL (0.55-1.3)
[2024-05-05 09:45] LABS: BILIRUBIN,TOTAL 0.6 mg/dL (0.2-1); TOT PROT 6.2 g/dl (6.4-8.2)
[2024-05-05] MEDS: LACTOBACILLUS ACIDOPHILUS 1 TABLET PO SCH (13:31)
[2024-05-05] MEDS: SUMAtriptan SUCCINATE 25 MG TABLET PO ONE (18:04)
[2024-05-05] MEDS: VANCOMYCIN ORAL SOLUTION 125 MG/2.5 ML PO SCH (18:05)
[2024-05-05] MEDS: KETOROLAC TROMETHAMINE 15 MG/ML VIAL IVPUSH ONE (18:43)
[2024-05-05] MEDS ORDERED: DIVALPROEX SODIUM 250 MG TABLET E.C. PO SCH (22:00)
[2024-05-06 14:57] VITALS: BMI 19.8
[2024-05-06] MEDS: HEPARIN NA (PORCINE) 5,000 UNITS/ML 1ML VIAL SQ SCH (21:34)
[2024-05-06] MEDS: DIVALPROEX SODIUM 250 MG TABLET E.C. PO SCH (21:34)
[2024-05-06 22:56] VITALS: RESP 18
[2024-05-07 09:36] LABS: BASO % 0.3 % (0-2.0); EOS % 0.7 % (0-4.5); HEMATOCRIT 38.1 % (32.4-45.2); HEMOGLOBIN 12.3 GM/dL (10.7-15.3); LYMPH % 56.5 % (8-40); MCH 28.8 pg (25.7-33.7); MCHC 32.4 g/dl (32.0-36.0); MEAN PLT VOLUME 7.7 fl (7.5-11.1); MONO % 10.6 % (3.8-10.2); NEUT % 31.9 % (42.8-82.8); PLATELET COUNT 140 10^3/uL (134-434); RBC 4.28 M/mm3 (3.60-5.2); RDW 14.1 % (11.6-15.6); WHITE BLOOD COUNT 3.9 K/mm3 (4.0-10.0)
[2024-05-07 09:51] LABS: POTASSIUM 3.7 mmol/L (3.5-5.1)
[2024-05-07 10:06] LABS: CALCIUM 8.8 mg/dL (8.5-10.1)
[2024-05-07 10:07] LABS: BLOOD UREA NITROGEN 5.1 mg/dL (7-18)
[2024-05-07 10:08] LABS: BILIRUBIN,TOTAL 0.4 mg/dL (0.2-1); CREATININE 0.4 mg/dL (0.55-1.3)
[2024-05-07 10:09] LABS: TOT PROT 5.8 g/dl (6.4-8.2)
[2024-05-07] MEDS: metoPROLOL SUCCINATE 25 MG TAB.SR.24H (FP) PO SCH (10:09)
[2024-05-07 10:16] LABS: N-TERMINAL BNP 74.1 pg/ml (5-125)
[2024-05-07 10:42] LABS: ERYTHROCYTE SEDIMENTATION RATE 7 mm/hr (0-30)
[2024-05-08 07:18] VITALS: TEMP 97.9
[2024-05-08] MEDS: oxyCODONE HCL 5 MG TABLET PO ONE (10:43)
[2024-05-08 14:36] VITALS: BP 114/70; PULSE 77
== END 2024-05-08 16:40 | disposition home or self-care (01) ==
LOC: JER 16:12 → JERBED 05-04 02:44 → J7W 05-05 15:23
PROVIDERS: ADMIT Internal Medicine; ATTEND Internal Medicine
PROC: 3E033NZ Introduction of Analgesics, Hypnotics, Sedatives into Peripheral Vein, Percutaneous Approach (ICD-10-PCS; principal; 2024-05-04)
PROC: 3E03329 Introduction of Other Anti-infective into Peripheral Vein, Percutaneous Approach (ICD-10-PCS; 2024-05-04)
PROC: 3E0333Z Introduction of Anti-inflammatory into Peripheral Vein, Percutaneous Approach (ICD-10-PCS; 2024-05-04)
PROC: 3E0337Z Introduction of Electrolytic and Water Balance Substance into Peripheral Vein, Percutaneous Approach (ICD-10-PCS; 2024-05-04)
DX: K52.9 Noninfective gastroenteritis and colitis, unspecified (principal); I10 Essential (primary) hypertension; I25.10 Atherosclerotic heart disease of native coronary artery without angina pectoris; E78.5 Hyperlipidemia, unspecified; E11.9 Type 2 diabetes mellitus without complications; M79.7 Fibromyalgia; Z87.891 Personal history of nicotine dependence; R07.9 Chest pain, unspecified; R77.8 Other specified abnormalities of plasma proteins; R10.9 Unspecified abdominal pain; Z90.49 Acquired absence of other specified parts of digestive tract
CPT/HCPCS: 0241U-QW; 36415; 71045-TC-FY; 74177-TC; 80048; 80053; 80061; 80164; 81003; 82550; 83036; 83605; 83690; 83735; 83880; 84439; 84443; 84484; 85025; 85610; 85651; 85730; 86140; 86850; 86900; 86901; 87045; 87046; 87086; 87324; 87449; 87798; 93005; 93010; 96361; 96365; 96375; 96376; 99285-25; G0378; J0131; J1644; Q9967